=== PATIENT | male | born 1965 | race Caucasian/White ===

== ENCOUNTER → 2024-04-28 | Outpatient (CLI) | payer BC, OTHER, SELFPAY ==
--- NOTE | 2024-04-28 09:19 | XR_ITS ---
Examination: Lumbar spine 3 views Technique one AP lateral coned lateral lower lumbar spine 3 views Exam date and time: April 28, 2024 1003 hrs. Indications: Low back pain beginning 3 months ago. Findings: Minimal anterolisthesis L5 on S1 No lumbar fracture Moderate lumbar spondylosis Diffuse moderate to advanced lumbar degenerative disc disease, most severe L5-S1 Impression: Diffuse moderate to advanced lumbar degenerative disease, most severe L5-S1
--- NOTE | 2024-04-28 09:21 | XR_ITS ---
Examination: PA chest single view Technique: Upright PA chest single view Exam date and time: April 28, 2024 at 0957 hrs. Comparison May 01, 2016 Indications: Shortness of breath wheezing beginning 6 months ago. Findings: Normal heart size No pneumonia or pulmonary edema Mild osteopenia Impression: No pneumonia or pulmonary edema
== END | disposition home or self-care (01) ==
PROVIDERS: Referring Provider Nurse Practitioner Family; Visit Provider Nurse Practitioner Family
DX: M51.379 Other intervertebral disc degeneration, lumbosacral region without mention of lumbar back pain or lower extremity pain (principal); R06.2 Wheezing
CPT/HCPCS: 71046; 72100